=== PATIENT | female | born 1980 | race Caucasian/White ===

== ENCOUNTER → 2016-11-17 | Outpatient (CLI) | payer MEDICAID ==
[~2016-11-17] MED LIST: BLOOD GLUCOSE M1 KIT; CLON1 PO; GLYB2.5T3 PO; LAMO25TA PO; VYVA50CA3 PO
== END ==
LOC: HPND 10:14
PROVIDERS: ATTEND Obstetrics & Gynecology
DX: O99.322 Drug use complicating pregnancy, second trimester (principal); O99.342 Other mental disorders complicating pregnancy, second trimester; O35.2XX0 Maternal care for (suspected) hereditary disease in fetus, not applicable or unspecified; Z3A.00 Weeks of gestation of pregnancy not specified
CPT/HCPCS: 76811; 76817

== ENCOUNTER 2016-12-29 20:25 | Inpatient (IN) | payer MEDICAID ==
[2016-12-29] VITALS (11 sets, daily range): BP systolic 77–157; BP diastolic 49–76; PULSE 95–107; RESP 16–18
--- NOTE | 2016-12-29 21:52 | PD ---
HPI Chief Complaint Dizzy/shaking Travel History International Travel<30 Days: No Contact w/Intl Traveler<30Days: No Known Affected Area: No History of Present Illness HPI 36-year-old 003, IUP at 34.2 care complicated by bipolar disorder, ADD, gestational diabetes, marginal placenta previa, advanced maternal age, maternal situs ambiguous The patient presents with a myriad of complaints tonight including shortness of breath, shaking legs, shaking body, confusion, and dizziness. She also reports her right hand and fingers have been numb for 3 days. She reports this started about 2 weeks ago. She reports a weight gain of 60 pounds thus far during the . She reports these symptoms have been ongoing today and they are no alleviating or aggravating factors. There were no attempted treatments. She reports good movement. She denies any leaking of fluid or vaginal bleeding. She reports good movement. She denies any headache, visual changes, right upper quadrant or epigastric pain. She reports that her shortness breath was earlier today and during activity however she is comfortable now and denies any shortness of breath at this time. Weeks Gestation: 34 Para: 3 : 4 History Past Medical History Narrative Medical bipolar disorder, ADD, gestational diabetes, marginal placenta previa, advanced maternal age, maternal situs ambiguous Obstetric History Obstetric History 003 3 full-term vaginal deliveries Past Surgical History Narrative Surgical Cholecystectomy Family History Narrative Family History DM Social History Alcohol Use: No Tobacco Use: No Substance Abuse: No Review of Systems HENT: Lightheadedness Respiratory: Short of Breath Musculoskeletal: Other (right hand numbness) Neurologic: Dizziness, Other (confusion) Physical Exam Narrative GENERAL: Well-nourished, well-developed patient. SKIN: Warm and dry. HEAD: Normocephalic and atraumatic. EYES: No scleral icterus. No injection or drainage. ENT: No nasal drainage noted. Mucous membranes pink. Airway patent. NECK: Supple, trachea midline. No JVD. CARDIOVASCULAR: Regular rate and rhythm without murmurs, gallops, or rubs. RESPIRATORY: Breath sounds equal bilaterally. No accessory muscle use. BREASTS: Deferred ABDOMEN/GI: Abdomen soft, non-tender, bowel sounds present, no rebound, no guarding Gravid GENITOURINARY: Deferred FHT's: heart tone baseline in the 130s with moderate long-term variability. There are good accelerations and no decelerations noted. This is a reactive heart rate tracing/category 1 tracing. EXTREMITIES: No cyanosis or edema. BACK: Nontender without obvious deformity. No CVA tenderness. NEUROLOGICAL: Awake and alert. Motor and sensory grossly within normal limits. Five out of 5 muscle strength in all muscle groups. Normal speech. Psychiatric: Grossly normal memory, somewhat anxious Musculoskeletal: Grossly normal range of motion, gait, muscle strength Data Data Orders Orders Vital Signs (Adult) .ON ADMISSION (12/29/16 21:34) ^ Labor Status (12/29/16 21:34) Urinalysis - C+S If Indicated (12/29/16 21:34) Diet Liquid (12/30/16 Breakfast) Cbc No Diff, Includes Plts (12/29/16 21:34) Comprehensive Metabolic Panel (12/29/16 21:34) Uric Acid (12/29/16 21:34) Ob/Psych Drug Screen, Urine (12/29/16 21:34) Protein Creat Ratio, Random Ur (12/29/16 21:35) MDM Plan Assessment/plan: 1. IUP at 34.2 2. No evidence of labor as no regular contractions noted, SVE deferred due to partial/marginal previa. Strict labor precautions 3. Marginal/partial placenta previa: Counseled about possible delivery. Counseled that it would be recommended for the patient to receive her care at the same site as which she plans to deliver for patient safety. We'll give referral to care resources in this community. Strict bleeding precautions. Pelvic rest. 4. Anxiety: Will Rx Vistaril for anxiety, continue any home meds 5. Elevated blood pressures: Blood pressures improved with bed rest, laboratory evaluation showed elevated protein creatinine ratio; normal AST, ALT , and platelets. Will admit for 24-hour urine and further observation. 6. bipolar disorder 7. ADD 8. gestational diabetes: We'll order ADA diet and check fasting/1 hour postprandial Accu-Cheks 9. advanced maternal age 10. Maternal situs ambiguous 11. well-being: Reassuring testing with reactive NST/category 1 heart rate tracing. FHR reassuring and appropriate for gestational age. kick counts daily. Continue monitoring at this time 12. Shortness of breath: Resolved 13. Hypokalemia: Will replete potassium 14. Prematurity: Will give betamethasone 2 for lung maturity Yue Álvarez MD Dec 29, 2016 21:52
[2016-12-29 22:27] LABS: HEMATOCRIT 32.5 % (35.0-46.0); MEAN CELL VOLUME 86.9 FL (80.0-100.0); MEAN CORPUSCULAR HEMOGLOBIN 28.8 PG (27.0-34.0); MEAN CORPUSCULAR HGB CONC 33.1 % (32.0-36.0); PLATELET COUNT 345 TH/MM3 (150-450); RED BLOOD COUNT 3.74 MIL/MM3 (4.00-5.30); RED CELL DISTRIBUTION WIDTH 13.8 % (11.6-17.2); REVIEW FLAG FINAL; WHITE BLOOD COUNT 18.2 TH/MM3 (4.0-11.0)
[2016-12-29 22:41] LABS: ANION GAP 10 MEQ/L (5-15); AST (GOT) 32 U/L (15-37); BICARBONATE 22.6 MEQ/L (21.0-32.0); BLOOD UREA NITROGEN 7 MG/DL (7-18); CHLORIDE 104 MEQ/L (98-107); GLOMERULAR FILTRATION RATE 114 ML/MIN (>89); POTASSIUM 3.2 MEQ/L (3.5-5.1); SODIUM (NA) 137 MEQ/L (136-145); URIC ACID 3.2 MG/DL (2.6-6.0)
[2016-12-29 22:42] LABS: ALT (GPT) 27 U/L (10-53)
[2016-12-29 22:44] LABS: ALKALINE PHOSPHATASE 197 U/L (45-117); TOTAL BILIRUBIN ADULT 0.4 MG/DL (0.2-1.0)
[2016-12-29 22:54] LABS: BACTERIA, URINE RARE /hpf; BLOOD, URINE NEG (NEG); CALCIUM OXALATE CRYSTALS,URINE RARE /hpf; COMMENT (UR) CULT NOT INDICATED; CULTURE IF INDICATED CULT NOT INDICATED; GLUCOSE,URINE NEG (NEG); KETONE, URINE 80 mg/dL (NEG); MUCUS URINE FEW /lpf (OCC); NITRITE,URINE NEG (NEG); PH, URINE 6.5 (5.0-8.5); SQUAMOUS EPITHELIAL CELL URINE <1 /hpf (0-5); URINE COLOR YELLOW (YELLW/STRAW)
[2016-12-30] VITALS (12 sets, daily range): BP systolic 107–138; BP diastolic 65–71; PULSE 92–108; RESP 18; TEMP 97.6–98.3
[2016-12-30] MEDS ORDERED: SODIUM CHLORIDE 0.9% FLUSH 5 ML FLUSH IV FLUSH PRN (00:45)
[2016-12-30] MEDS ORDERED: LACTATED RINGER'S 1000 ML INJ 1,000 ML IV ONE (00:45)
[2016-12-30] MEDS ORDERED: GLUCAGON 1 MG/ML VIAL OTHER PRN (00:45)
[2016-12-30] MEDS ORDERED: ONDANSETRON ODT 4 MG TAB PO PRN (00:45)
[2016-12-30] MEDS ORDERED: POTASSIUM CHLORIDE 10 MEQ CONTROLLED RELEASE TAB PO ONE ×2 (00:45→09:00)
[2016-12-30] MEDS ORDERED: ACETAMINOPHEN 325 MG TAB PO PRN (00:45)
[2016-12-30] MEDS ORDERED: DEXTROSE 50% IN WATER 50 ML VIAL(D50) IV PUSH PRN (00:45)
[2016-12-30] MEDS ORDERED: CALCIUM GLUCONATE 10% 1 GM/10 ML VIAL IV PUSH PRN (00:45)
[2016-12-30] MEDS: BETAMETHASONE SOD PHOS/ACETATE SUSP 30 MG/5 ML VIAL IM SCH ×2 (01:48→23:20)
--- NOTE | 2016-12-30 02:01 | HHI.HP ---
HPI Chief Complaint Dizziness Date Seen: Dec 30, 2016 Travel History International Travel<30 Days: No Contact w/Intl Traveler<30Days: No Known Affected Area: No History of Present Illness HPI Ms. Mann is a 36-year-old presenting at 34/2 weeks gestation with chief complaint of dizziness. She states that she has had dizziness, shortness of breath, entire body tremor, and confusion for the past 2 weeks. She states that her third, fourth, and fifth right fingers have become numb over the last 2 days as well. She initially reported this has been uncomplicated with her receiving care [facility] from "4 different doctors." However upon further investigation she reports that she was diagnosed with gestational diabetes yesterday and has reportedly gained 60 pounds thus far during . She reports good movement and denies any loss of fluid, vaginal bleeding, discharge, or dysuria. On review of systems she endorses visual changes, headaches, and right upper quadrant pain. Otherwise review of systems negative. History Past Medical History Narrative Medical Bipolar disorder with major depression - off medications since positive test Situs ambiguous with levocardia Obstetric History Obstetric History 3 full-term vaginal deliveries Of note second required induction at 42 weeks, had episodes of apnea and required NICU stay Past Surgical History Narrative Surgical Cholecystectomy Family History Narrative Family History Denies significant family medical history Social History Narrative Social History Endorses smoking early term (3-4 cigarettes per day) Denies alcohol or illicit drug use during Allergies-Medications (Allergen,Severity, Reaction): Coded Allergies: No Known Allergies (Unverified , 12/30/16) Review of Systems Except as stated in HPI: all other systems reviewed are Neg Respiratory: Short of Breath Musculoskeletal: Weakness Neurologic: Dizziness, Headache Physical Exam Narrative GENERAL: Well-nourished, well-developed patient. SKIN: Warm and dry. HEAD: Normocephalic and atraumatic. EYES: No scleral icterus. No injection or drainage. ENT: No nasal drainage noted. Mucous membranes pink. Airway patent. NECK: Supple, trachea midline. No JVD. CARDIOVASCULAR: Regular rate and rhythm without murmurs, gallops, or rubs. RESPIRATORY: Breath sounds equal bilaterally. No accessory muscle use. ABDOMEN/GI: Abdomen soft with positive bowel sounds. Moderate tenderness to right upper quadrant upon palpation. Gravid to 34 FHT's: Category: 1 Baseline: 140s Reactive: Positive Variability: Moderate Decels: None EXTREMITIES: No cyanosis or edema. BACK: Nontender without obvious deformity. No CVA tenderness. NEUROLOGICAL: Awake and alert. Motor and sensory grossly within normal limits. Five out of 5 muscle strength in all muscle groups. Normal speech. Attempted to examine reflexes, however patient noncompliant with exam flexing her leg muscles during examination. Caprini VTE Risk Assessment Caprini VTE Risk Assessment: Mod/High Risk (score >= 2) Caprini Risk Assessment Model Point Value = 1 Point Value = 2 Point Value = 3 Point Value = 5 Age 41-60 Minor surgery BMI > 25 kg/m2 Swollen legs Varicose veins or History of unexplained or recurrent spontaneous Oral contraceptives or hormone replacement Sepsis (< 1 month) Serious lung disease, including pneumonia (< 1 month) Abnormal pulmonary function Acute myocardial infarction Congestive heart failure (< 1 month) History of inflammatory bowel disease Medical patient at bed rest Age 61-74 Arthroscopic surgery Major open surgery (> 45 min) Laparoscopic surgery (> 45 min) Malignancy Confined to bed (> 72 hours) Immobilizing plaster cast Central venous access Age >= 75 History of VTE Family history of VTE Factor V Leiden Prothrombin [id number] Lupus anticoagulant Anticardiolipin antibodies Elevated serum homocysteine Heparin-induced thrombocytopenia Other congenital or acquired thrombophilia Stroke (< 1 month) Elective arthroplasty Hip, pelvis, or leg fracture Acute spinal cord injury (< 1 month) Prophylaxis Regimen Total Risk Factor Score Risk Level Prophylaxis Regimen 0-1 Low Early ambulation 2 Moderate Order ONE of the following: *Sequential Compression Device (SCD) *Heparin 5000 units SQ BID 3-4 Higher Order ONE of the following medications: *Heparin 5000 units SQ TID *Enoxaparin/Lovenox 40 mg SQ daily (WT < 150 kg, CrCl > 30 mL/min) *Enoxaparin/Lovenox 30 mg SQ daily (WT < 150 kg, CrCl > 10-29 mL/min) *Enoxaparin/Lovenox 30 mg SQ BID (WT < 150 kg, CrCl > 30 mL/min) AND/OR *Sequential Compression Device (SCD) 5 or more Highest Order ONE of the following medications: *Heparin 5000 units SQ TID (Preferred with Epidurals) *Enoxaparin/Lovenox 40 mg SQ daily (WT < 150 kg, CrCl > 30 mL/min) *Enoxaparin/Lovenox 30 mg SQ daily (WT < 150 kg, CrCl > 10-29 mL/min) *Enoxaparin/Lovenox 30 mg SQ BID (WT < 150 kg, CrCl > 30 mL/min) AND *Sequential Compression Device (SCD) Data Data Vital Signs Reviewed: Yes Orders Orders Vital Signs (Adult) .ON ADMISSION (12/29/16 21:34) ^ Labor Status (12/29/16 21:34) Urinalysis - C+S If Indicated (12/29/16 21:34) Cbc No Diff, Includes Plts (12/29/16 21:34) Comprehensive Metabolic Panel (12/29/16 21:34) Uric Acid (12/29/16 21:34) Ob/Psych Drug Screen, Urine (12/29/16 21:34) Protein Creat Ratio, Random Ur (12/29/16 21:35) Ob (2e) Additional Admit Info (12/29/16 23:55) Admit To Inpatient (12/30/16 ) Code Status (12/30/16 00:41) Resp Pulse Oximetry (12/30/16 ) Activity Bed Rest (12/30/16 00:41) Intake + Output Q1H (12/30/16 00:41) Notify Parameters (12/30/16 00:41) Heart CONTINUOUS (12/30/16 00:41) Urinary Catheter Management ARYA.Q8H (12/30/16 00:41) ^ Check Deep Tendon Reflexes Q1H (12/30/16 00:41) Sodium Chloride 0.9% Flush (Ns Flush) (12/30/16 00:45) Sodium Chloride 0.9% Flush (Ns Flush) (12/30/16 09:00) Betamethasone Inj (Celestone Soluspan In (12/30/16 00:45) Calcium Gluconate Inj (Calcium Gluconate (12/30/16 00:45) Acetaminophen (Tylenol) (12/30/16 00:45) Ondansetron Odt (Zofran Odt) (12/30/16 00:45) Msdwtgwa-Zuy-Hczla-Iron Prenat (Stuartna (12/30/16 09:00) Zolpidem (Ambien) (12/30/16 00:45) Cbc No Diff, Includes Plts (12/30/16 06:00) Comprehensive Metabolic Panel (12/30/16 13:00) Uric Acid (12/30/16 13:00) Total Protein 24hr Urine (12/30/16 00:41) Bedside Glucose ARYA.CSUGAR&03 (12/30/16 00:41) Blood Glucose Goal (Criteria) (12/30/16 00:41) Hypoglycemia 70 Mg/Dl Or < (12/30/16 00:41) Notify Dr: Other (12/30/16 00:41) Dextrose 50% In Aurelia (Vial) Inj (D50w (Vi (12/30/16 00:45) Glucagon Inj (Glucagon Inj) (12/30/16 00:45) Insulin Aspart Supplemtl Scale (Novolog (12/30/16 08:00) Vital Signs (Adult) ARYA.Q4H (12/30/16 00:41) Diet Ob Consistent Carb (12/30/16 Breakfast) Hydroxyzine Pamoate (Vistaril) (12/30/16 00:45) Potassium Chloride (Kcl) (12/30/16 00:45) Lactated Ringer's 1000 Ml Inj (Lr 1000 M (12/30/16 00:45) Potassium Chloride (Kcl) (12/30/16 09:00) Inpatient Certification (12/30/16 ) Labs Laboratory Tests Test 12/29/16 21:30 12/29/16 21:50 Urine Color YELLOW Urine Turbidity CLEAR Urine pH 6.5 Urine Specific [place] 1.016 Urine Protein TRACE Urine Glucose (UA) NEG Urine Ketones 80 Urine Occult Blood NEG Urine Nitrite NEG Urine Bilirubin NEG Urine Urobilinogen LESS THAN 2.0 Urine Leukocyte Esterase NEG Urine RBC 1 Urine WBC 1 Urine Squamous Epithelial Cells <1 Urine Calcium Oxalate Crystals RARE Urine Bacteria RARE Urine Mucus FEW Microscopic Urinalysis Comment CULT NOT INDICATED Urine Random Creatinine 85 Urine Random Total Protein 40 Urine Protein/Creatinine Ratio 0.47 Urine Opiates Screen NEG Urine Barbiturates Screen NEG Urine Amphetamines Screen NEG Urine Benzodiazepines Screen NEG Urine Cocaine Screen NEG Urine Cannabinoids Screen NEG White Blood Count 18.2 Red Blood Count 3.74 Hemoglobin 10.8 Hematocrit 32.5 Mean Corpuscular Volume 86.9 Mean Corpuscular Hemoglobin 28.8 Mean Corpuscular Hemoglobin Concent 33.1 Red Cell Distribution Width 13.8 Platelet Count 345 Mean Platelet Volume 9.1 Blood Urea Nitrogen 7 Creatinine 0.60 Random Glucose 141 Total Protein 6.6 Albumin 2.5 Calcium Level 8.9 Uric Acid 3.2 Alkaline Phosphatase 197 Aspartate Amino Transf (AST/SGOT) 32 Alanine Aminotransferase (ALT/SGPT) 27 Total Bilirubin 0.4 Sodium Level 137 Potassium Level 3.2 Chloride Level 104 Carbon Dioxide Level 22.6 Anion Gap 10 Estimat Glomerular Filtration Rate 114 Assessment/Plan Problem List: (1) PIH ( induced hypertension) ICD Codes: O13.9 - Gestational [-induced] hypertension without significant proteinuria, unspecified trimester Status: Acute (2) 34 weeks gestation of ICD Codes: Z3A.34 - 34 weeks gestation of Status: Acute Assessment and Plan Ms. Mann is a 36 y/o F presenting with PIH 1. IUP at 34 weeks gestation -Continue routine antepartum care -Encourage oral hydration -Continue vitamin -FHT category 1, reassuring 2. PIH -Blood pressure up to 157/67 -History and physical exam significant for headaches, blurry vision, tremor, abdominal pain -CBC: WBC 18.2, H/H 10.8/32.5, platelets 345 -CMP: Potassium 3.2, alkaline phosphatase 197, glucose 141, otherwise within normal limits -Uric acid within normal limits at 3.2 -UA: 80 ketones, oxalate crystals, rare bacteria, few mucus, otherwise negative -Protein to creatinine ratio: Elevated to 0.47 -Patient admitted for observation to complete 24 hour urine protein collection -Betamethasone 2 days ordered for lung maturity -1 L LR bolus 3. Gestational diabetes -OB carbohydrate consistent diet ordered -NovoLog sliding scale insulin per protocol 4. Bipolar disorder with anxiety/depression -Vistaril 50 mg every 6 hours when necessary for anxiety -Ambien 5 mg daily at bedtime when necessary for insomnia SDW: Dr. Álvarez, Dr. Carcamo Discharge Planning Pending clinical course Clemente Hernández MD R2 Dec 30, 2016 02:01
[2016-12-30] MEDS: ZOLPIDEM TARTRATE 5 MG TAB PO PRN ×2 (02:15→23:20)
[2016-12-30 05:51] LABS: HEMATOCRIT 30.4 % (35.0-46.0); MEAN CELL VOLUME 87.6 FL (80.0-100.0); MEAN CORPUSCULAR HEMOGLOBIN 29.2 PG (27.0-34.0); MEAN CORPUSCULAR HGB CONC 33.4 % (32.0-36.0); PLATELET COUNT 322 TH/MM3 (150-450); RED BLOOD COUNT 3.47 MIL/MM3 (4.00-5.30); RED CELL DISTRIBUTION WIDTH 13.9 % (11.6-17.2); REVIEW FLAG FINAL; WHITE BLOOD COUNT 14.1 TH/MM3 (4.0-11.0)
[2016-12-30] MEDS: SODIUM CHLORIDE 0.9% FLUSH 5 ML FLUSH IV FLUSH SCH ×2 (09:00→21:00)
[2016-12-30] MEDS: MULTIVIT/MIN/PREN/FOL AC/IRON PRENATAL TAB PO SCH (09:02)
--- NOTE | 2016-12-30 10:57 | PD.OB.ANTE ---
Subjective Diagnosis: (1) PIH ( induced hypertension) (2) 34 weeks gestation of Interval History Pt reports feeling improved this morning. Headache has resolved, as well as shortness of breath and dizziness. She states that she slept well and that it helped with her symptoms. States she has been having "hazy vision" for the last two weeks, which hasn't resolved. Otherwise, denies any chest pain, SOB, abdominal pain, leg pain. Antepartum ROS: Reports: movement normal, Denies: New complaints, Loss of fluid, Vaginal bleeding, Contractions, Other Objective Lab & Micro Results Test 12/29/16 21:30 12/29/16 21:50 12/30/16 05:05 Urine Color YELLOW Urine Turbidity CLEAR Urine pH 6.5 Urine Specific [place] 1.016 Urine Protein TRACE mg/dL Urine Glucose (UA) NEG mg/dL Urine Ketones 80 mg/dL Urine Occult Blood NEG Urine Nitrite NEG Urine Bilirubin NEG Urine Urobilinogen LESS THAN 2.0 MG/DL Urine Leukocyte Esterase NEG Urine RBC 1 /hpf Urine WBC 1 /hpf Urine Squamous Epithelial Cells <1 /hpf Urine Calcium Oxalate Crystals RARE /hpf Urine Bacteria RARE /hpf Urine Mucus FEW /lpf Microscopic Urinalysis Comment CULT NOT INDICATED Urine Random Creatinine 85 MG/DL Urine Random Total Protein 40 MG/DL Urine Protein/Creatinine Ratio 0.47 Urine Opiates Screen NEG Urine Barbiturates Screen NEG Urine Amphetamines Screen NEG Urine Benzodiazepines Screen NEG Urine Cocaine Screen NEG Urine Cannabinoids Screen NEG White Blood Count 18.2 TH/MM3 14.1 TH/MM3 Red Blood Count 3.74 MIL/MM3 3.47 MIL/MM3 Hemoglobin 10.8 GM/DL 10.2 GM/DL Hematocrit 32.5 % 30.4 % Mean Corpuscular Volume 86.9 FL 87.6 FL Mean Corpuscular Hemoglobin 28.8 PG 29.2 PG Mean Corpuscular Hemoglobin Concent 33.1 % 33.4 % Red Cell Distribution Width 13.8 % 13.9 % Platelet Count 345 TH/MM3 322 TH/MM3 Mean Platelet Volume 9.1 FL 9.2 FL Blood Urea Nitrogen 7 MG/DL Creatinine 0.60 MG/DL Random Glucose 141 MG/DL Total Protein 6.6 GM/DL Albumin 2.5 GM/DL Calcium Level 8.9 MG/DL Uric Acid 3.2 MG/DL Alkaline Phosphatase 197 U/L Aspartate Amino Transf (AST/SGOT) 32 U/L Alanine Aminotransferase (ALT/SGPT) 27 U/L Total Bilirubin 0.4 MG/DL Sodium Level 137 MEQ/L Potassium Level 3.2 MEQ/L Chloride Level 104 MEQ/L Carbon Dioxide Level 22.6 MEQ/L Anion Gap 10 MEQ/L Estimat Glomerular Filtration Rate 114 ML/MIN Physical Exam GENERAL: Well-nourished, well-developed patient. CARDIOVASCULAR: Regular rate and rhythm without murmurs, gallops, or rubs. RESPIRATORY: Breath sounds equal bilaterally. No accessory muscle use. ABDOMEN/GI: Abdomen soft, non-tender. Gravid to 34 weeks GENITOURINARY: FHT's: Category: 1 Baseline: 140 Reactive: yes Variability: moderate Decels: none EXTREMITIES: No cyanosis or edema, non-tender, without signs of DVT. Assessment and Plan Problem List: (1) PIH ( induced hypertension) ICD Codes: O13.9 - Gestational [-induced] hypertension without significant proteinuria, unspecified trimester Status: Acute Qualifiers: Qualified Codes: O13.3 - Gestational [-induced] hypertension without significant proteinuria, third trimester (2) 34 weeks gestation of ICD Codes: Z3A.34 - 34 weeks gestation of Status: Acute Assessment and Plan Ms. Mann is a 36 y/o F presenting with PIH 1. IUP at 34 weeks gestation -Continue routine antepartum care -Encourage oral hydration -Continue vitamin -FHT category 1, reassuring 2. PIH Blood pressure up to 157/67 on admission, resolved this morning to 107/70. Clinical symptoms resolving. Protein to creatinine ratio: Elevated to 0.47 -Await 24 hour urine protein collection -Betamethasone 2 days ordered for lung maturity 3. Gestational diabetes -OB carbohydrate consistent diet ordered -NovoLog sliding scale insulin per protocol 4. Bipolar disorder with anxiety/depression -Vistaril 50 mg every 6 hours when necessary for anxiety -Ambien 5 mg daily at bedtime when necessary for insomnia SDW Dr. Álvarez. Simon Pena MD, R2 Dec 30, 2016 10:57
[2016-12-30] MEDS: INSULIN ASPART SUPPLEMENTAL SCALE SQ SCH ×2 (11:32→21:36)
[2016-12-30 14:52] LABS: ALT (GPT) 27 U/L (10-53); ANION GAP 9 MEQ/L (5-15); AST (GOT) 22 U/L (15-37); BICARBONATE 23.1 MEQ/L (21.0-32.0); BLOOD UREA NITROGEN 6 MG/DL (7-18); CHLORIDE 104 MEQ/L (98-107); GLOMERULAR FILTRATION RATE 108 ML/MIN (>89); POTASSIUM 3.8 MEQ/L (3.5-5.1); SODIUM (NA) 136 MEQ/L (136-145); URIC ACID 3.2 MG/DL (2.6-6.0)
[2016-12-30 14:55] LABS: ALKALINE PHOSPHATASE 190 U/L (45-117); TOTAL BILIRUBIN ADULT 0.3 MG/DL (0.2-1.0)
[2016-12-30] MEDS: clonazePAM 1 MG TAB PO PRN (17:15)
[2016-12-31 00:08] LABS: URINE TOTAL PROTEIN TIMED 15.7 MG/DL
[2016-12-31] MEDS: INSULIN ASPART SUPPLEMENTAL SCALE SQ SCH ×2 (08:00→12:48)
[2016-12-31 08:09] VITALS: BP 124/72; PULSE 111; RESP 16; TEMP 98.5
[2016-12-31] MEDS: MULTIVIT/MIN/PREN/FOL AC/IRON PRENATAL TAB PO SCH (08:45)
[2016-12-31] MEDS: SODIUM CHLORIDE 0.9% FLUSH 5 ML FLUSH IV FLUSH SCH (08:46)
[2016-12-31] MEDS: clonazePAM 1 MG TAB PO PRN (09:26)
[2016-12-31] MEDS ORDERED: VYVA50CA3 PO (10:52)
[2016-12-31] MEDS ORDERED: GLYB2.5T3 PO (10:52)
[2016-12-31] MEDS ORDERED: LAMO25TA PO (10:52)
[2016-12-31] MEDS ORDERED: CLON1 PO (10:52)
[2016-12-31] MEDS ORDERED: BLOOD GLUCOSE M1 KIT (10:52)
--- NOTE | 2016-12-31 10:53 | HHI.DCPOC ---
Discharge Care Plan Diagnosis: (1) PIH ( induced hypertension) (2) Gestational diabetes Report Symptoms to Your Doctor -Temperature above 100.5 degrees -Redness, of incision or excessive or foul smelling drainage -Unusual pain or calf pain -Increased vaginal bleeding -Painful or difficulty urinating -Feelings of extreme sadness or anxiety after 2 weeks Goals to Promote Your Health * To prevent worsening of your condition and complications * To maintain your health at the optimal level Directions to Meet Your Goals Take your medications as prescribed Follow your dietary instruction Follow activity as directed Ensure plenty of rest for recovery Drink fluids for hydration Keep your appointments as scheduled Take your immunizations and boosters as scheduled If your symptoms worsen call your PCP, if no PCP go to Urgent Care Center or Emergency Room Smoking is Dangerous to Your Health. Avoid second hand smoke Call the 24-hour crisis hotline for domestic abuse at Lino Maher MD R2 Dec 31, 2016 10:53
[2016-12-31] MEDS ORDERED: LISDEXAMFETAMINE DIMESYLATE 50 MG CAP PO ONE (12:00)
[2016-12-31] MEDS ORDERED: lamoTRIgine 25 MG TAB PO ONE (12:00)
--- NOTE | 2016-12-31 15:46 | PD.OB.ANTE ---
Subjective Diagnosis: (1) PIH ( induced hypertension) (2) 34 weeks gestation of Interval History This morning feels anxious but otherwise better than previous days. Denies headache, visual disturbance. She does note some mild upper abdominal pain. Otherwise denies chest pain, shortness of breath, swelling. Antepartum ROS: Reports: movement normal, Denies: New complaints, Loss of fluid, Vaginal bleeding, Contractions Objective Vital Signs Vital Signs Date Time Temp Pulse Resp B/P (MAP) Pulse Ox O2 Delivery O2 Flow Rate FiO2 12/31/16 08:09 98.5 16 12/31/16 08:09 111 124/72 (89) 12/30/16 19:59 18 12/30/16 19:59 98.3 12/30/16 19:57 108 121/69 (86) 12/30/16 17:21 106 138/65 (89) 12/30/16 17:20 18 12/30/16 17:11 98.2 Lab & Micro Results Test 12/30/16 23:00 Urine Total Volume 24 Hours 3550 ML Urine Total Protein 24 Hour 557 MG/24HR Physical Exam GENERAL: Well-nourished, well-developed patient. CARDIOVASCULAR: Regular rate and rhythm without murmurs, gallops, or rubs. RESPIRATORY: Breath sounds equal bilaterally. No accessory muscle use. ABDOMEN/GI: Abdomen soft, non-tender. FHT's: Category: 1 Baseline: 120 Reactive: Y Variability: moderate Decels: N EXTREMITIES: No cyanosis or edema, non-tender, without signs of DVT. Assessment and Plan Problem List: (1) PIH ( induced hypertension) ICD Codes: O13.9 - Gestational [-induced] hypertension without significant proteinuria, unspecified trimester Status: Acute Qualifiers: Qualified Codes: O13.3 - Gestational [-induced] hypertension without significant proteinuria, third trimester (2) 34 weeks gestation of ICD Codes: Z3A.34 - 34 weeks gestation of Status: Acute Assessment and Plan Ms. Mann is a 36 y/o F presenting with PIH 1. IUP at 34 weeks gestation -Continue routine antepartum care -Encourage oral hydration -Continue vitamin -FHT category 1, reassuring 2. PIH Blood pressure up to 157/67 on admission, normotensive for last 24 hours. Clinical symptoms resolving. Protein to creatinine ratio: Elevated to 0.47 24 h urine protein 557 -Betamethasone 2 days ordered for lung maturity -F/u with OB this week for BP check plus DM (see below) 3. Gestational diabetes -Glyburide 2.5 mg PO BID -AccuChek at home in AM and 1-2 ACs -F/u with [facility] 4. Bipolar disorder with anxiety/depression with ADHD -Vistaril 50 mg every 6 hours when necessary for anxiety -Ambien 5 mg daily at bedtime when necessary for insomnia -Refill patient's medications (Klonopin, Vyvanse, Lamictal) prior to discharge; patient was looked up in [facility] system and no red flags for abuse were noted, and she has not received her medications for a month Lino Maher MD R2 Dec 31, 2016 15:46
--- NOTE | 2017-01-01 21:29 | HHI.PR ---
Addendum to Inpatient Note Addendum Reason: Corrected Documentation Additional Information Pharmacist Judit at [facility] in [place] called to clarify orders for this patient on discharge. Per discharge orders patient received a glucose monitor without any test strips and she was going to request a verbal order to give patient testing strips and other diabetic testing supplies. Verbal order was given. No other requests were expressed. Nessa Ortiz MD R2 Jan 01, 2017 21:29
[2017-01-06 09:12] LABS: BATH SALTS (MDPV) UR NEG (NEG); ECSTASY (MDMA) UR NEG (NEG); GABAPENTIN UR NEG (NEG); HEROIN (6-ACETYLMORPHINE) UR NEG (NEG); HYDROMORPHONE U NEG (NEG); K2 SPICE UR NEG (NEG); OBMETHADONE UR NEG (NEG); PHENCYCLIDINE URINE NEG (NEG)
== END 2016-12-31 17:00 | disposition home or self-care (01) | DRG 781 ==
LOC: HOBED 20:25 → H2EA 23:55 → OBSVTOIN 12-30 00:59
PROVIDERS: ADMIT Obstetrics & Gynecology; ATTEND Obstetrics & Gynecology
DX: O13.3 Gestational [pregnancy-induced] hypertension without significant proteinuria, third trimester (principal); O24.419 Gestational diabetes mellitus in pregnancy, unspecified control; O99.353 Diseases of the nervous system complicating pregnancy, third trimester; O44.23 Partial placenta previa NOS or without hemorrhage, third trimester; F31.9 Bipolar disorder, unspecified; O99.343 Other mental disorders complicating pregnancy, third trimester; O09.523 Supervision of elderly multigravida, third trimester; Z3A.34 34 weeks gestation of pregnancy; F90.9 Attention-deficit hyperactivity disorder, unspecified type; F41.8 Other specified anxiety disorders; G47.00 Insomnia, unspecified; O99.333 Smoking (tobacco) complicating pregnancy, third trimester
CPT/HCPCS: 59025; 80053; 80307; 81001; 82570; 82948; 84156; 84157; 84550; 85027; 96372; G0378; G0481; J0702; J1815; J7120